=== PATIENT | female | born 1990 | race Caucasian/White ===

== ENCOUNTER 2017-02-14 14:54 | Emergency (ER) | payer SELFPAY ==
--- NOTE | 2017-02-14 15:30 | ER Document Report ---
HPI - HPI Patient complains to provider of: Right ankle swelling for 3 months and exposure to possible STD Onset: Other - See above Onset/Duration: Persistent Pain Level: 4 Context: 26-year-old female wants her right ankle checked out she has had swelling in it for 3 months. No recent injury. She previously had open reduction internal fixation of right calcaneus fracture with a implant Synthes titanium lateral calcaneal mesh plate surgery by Dr. Lynn 07-08-2015. She also was told by her ex-male partner that she may have been exposed to STD. She has white discharge that is itchy. No pelvic pain. No fever. No nausea vomiting or diarrhea. Associated Symptoms: None Exacerbated by: Walking Relieved by: Denies Similar symptoms previously: No Recently seen / treated by doctor: No Notes: Patient of the health department - ROS ROS below otherwise negative: Yes Systems Reviewed and Negative: Yes All other systems reviewed and negative - REPRODUCTIVE LMP: Dec 2016 Reproductive: DENIES: : Past Medical History - General Information source: Patient - Social History Smoking Status: Never Smoker Frequency of alcohol use: None Drug Abuse: None Lives with: Family Family History: Reviewed & Not Pertinent - Medical History Medical History: Negative Past Surgical History: Reports: Hx Section - Immunizations Immunizations up to date: Yes Hx Diphtheria, Pertussis, Tetanus Vaccination: Yes - 05/15/14 Vertical Provider Document - CONSTITUTIONAL Agree With Documented VS: Yes Exam Limitations: No Limitations - INFECTION CONTROL TRAVEL OUTSIDE OF THE [place] IN LAST 30 DAYS: No COUNTRY TRAVELED TO/FROM: [facility] - [facility] HEENT: Normocephalic - NECK Neck: Supple - RESPIRATORY Respiratory: Breath Sounds Normal, No Respiratory Distress O2 Sat by Pulse Oximetry: 99 - CARDIOVASCULAR Cardiovascular: Regular Rate, Regular Rhythm - GI/ABDOMEN Gastrointestinal: Abdomen Soft, Abdomen Non-Tender, No Organomegaly - MUSCULOSKELETAL/EXTREMETIES Musculoskeletal/Extremeties: MAEW, FROM, Edema - right perilateral malleolus - NEURO Level of Consciousness: Awake, Alert Motor/Sensory: No Motor Deficit, No Sensory Deficit - DERM Integumentary: Warm, Dry, No Rash Course - Re-evaluation Re-evalutation: 02/14/17 16:51 test is negative, the wet prep looks like she has bacterial vaginosis 4+ bacteria and 4+ epi's the gonorrhea and Chlamydia are pending. 02/14/17 17:19 X-ray shows chronic post surgical changes but nothing acute. 02/14/17 17:27 Patient does not want to be treated for gonorrhea and chlamydia she wants to wait until the cultures come back so I will give her my phone number at the desk and sitting and she can call me back in 2 hours. I will treat her for the bacterial vaginosis with Flagyl and discussed this with her especially not to drink any alcohol. - Vital Signs Vital signs: Temp Pulse Resp BP Pulse Ox 98.0 F 76 16 108/80 99 02/14/17 15:02 02/14/17 15:02 02/14/17 15:02 02/14/17 15:02 02/14/17 15:02 Discharge - Discharge Clinical Impression: Bacterial vaginosis, Chronic right ankle swelling Condition: Good Disposition: HOME, SELF-CARE Instructions: Arthralgia ([facility]), Metronidazole ([facility]), Vaginosis, Bacterial ([facility]) Additional Instructions: Call me in 2 hours for the gonorrhea and Chlamydia test. [phone] Lynn if this ankle swelling and pain persists return to er any concerns no alcohol when takinge the flagyl(metronidazole) Prescriptions: Metronidazole 500 mg PO BID #14 tablet Referrals: CHALO LYNN MD [ACTIVE STAFF] - Follow up as needed
[2017-02-14 16:21] LABS: T.VAGINALIS (WET MOUNT) NO TRICHOMONAS SEEN
[2017-02-14 16:22] LABS: BACTERIA (WET MOUNT) 4+ BACTERIA SEEN; EPITHELIALS (WET MOUNT) 4+ EPITHELIALS SEEN; WBCS (WET MOUNT) 1+ WBCS SEEN; YEAST (WET MOUNT) NO YEAST SEEN
--- NOTE | 2017-02-14 17:13 | RADIOLOGY REPORT (SQ) ---
EXAM DESCRIPTION: ANKLE RIGHT COMPLETE COMPLETED DATE/TIME: 02/14/2017 5:03 pm REASON FOR STUDY: swelling COMPARISON: 06/23/2015 NUMBER OF VIEWS: Three views. TECHNIQUE: AP, lateral, and oblique radiographic images acquired of the right ankle. LIMITATIONS: None. FINDINGS: MINERALIZATION: Normal. BONES: No acute fracture or dislocation. No worrisome bone lesions. Internal fixation hardware invo lving the calcaneus with complete healing of previous identified fracture. Bony excrescence involvin g the distal fibula compatible with chronic avulsion type injury. JOINTS: No effusions. SOFT TISSUES: No soft tissue swelling. No foreign body. OTHER: No other significant finding. IMPRESSION: CHRONIC POSTTRAUMATIC/ POSTSURGICAL CHANGE ABOVE WITHOUT ACUTE OSSEOUS ABNORMALITY OR HARDWARE COMPLICATION IDENTIFIED. TECHNICAL DOCUMENTATION: JOB ID: [id number] [employer]- All Rights Reserved
[2017-02-14 17:40] VITALS: BP 111/63
[2017-02-14 17:47] LABS: CHLAM PCR NOT DETECTED (NOT DETECT); GON PCR NOT DETECTED (NOT DETECT)
== END 2017-02-14 17:40 | disposition home or self-care (01) ==
LOC: ER 14:54
DX: N76.0 Acute vaginitis (principal); B96.89 Other specified bacterial agents as the cause of diseases classified elsewhere; M79.89 Other specified soft tissue disorders; Z98.890 Other specified postprocedural states
CPT/HCPCS: 81025; 87210; 87491; 87591; 99284

== ENCOUNTER 2018-11-05 11:32 | Emergency (ER) | payer OTHER ==
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
[2018-11-05] MEDS ORDERED: CEFTRIAXONE INJ 250 MG VIAL IM ONE (11:47)
[2018-11-05] MEDS ORDERED: LIDOCAINE 1% INJ-PF (10 MG/ML) 30 ML SDV INJ ONE (11:47)
[2018-11-05] MEDS ORDERED: AZITHROMYCIN 250 MG TABLET PO ONE (11:47)
[2018-11-05 12:16] LABS: APPEARANCE,URINE SLIGHTLY-CLOUDY; BILIRUBIN,URINE NEGATIVE (NEGATIVE); COLOR,URINE AMBER; GLUCOSE, URINE NEGATIVE (NEGATIVE); KETONES,URINE TRACE mg/dL (NEGATIVE); LEUKOCYTE ESTERASE,URINE NEGATIVE (NEGATIVE); NITRITE,URINE NEGATIVE (NEGATIVE); PROTEIN,URINE 30 mg/dL (NEGATIVE); URINE SPECIFIC GRAVITY 1.025
[2018-11-05 12:24] LABS: BACTERIA (WET MOUNT) 3+ BACTERIA SEEN; EPITHELIALS (WET MOUNT) 3+ EPITHELIALS SEEN; RBCS (WET MOUNT) RARE RBCS SEEN; T.VAGINALIS (WET MOUNT) NO TRICHOMONAS SEEN; WBCS (WET MOUNT) RARE WBCS SEEN; YEAST (WET MOUNT) YEAST SEEN
--- NOTE | 2018-11-05 13:17 | RADIOLOGY REPORT (SQ) ---
EXAM DESCRIPTION: CT FACIAL AREA WITHOUT COMPLETED DATE/TIME: 11/05/2018 1:01 pm REASON FOR STUDY: Rt orbit/nasal bone pain s/p injury COMPARISON: None. TECHNIQUE: Noncontrasted images through the facial bones and orbits windowed for bone and soft tissu e. Additional coronal and sagittal reconstructed images reviewed. All images stored on PACS. All CT scanners at this facility use dose modulation, iterative reconstruction, and/or weight based d osing when appropriate to reduce radiation dose to as low as reasonably achievable (ALARA). [facility]: Dose Right [facility]: CareDose [facility]: Dose Right [facility]: Teradose 4D [facility]: Smart Technologies RADIATION DOSE: CT Rad equipment meets quality standard of care and radiation dose reduction techniq ues were employed. CTDIvol: 30.4 mGy. DLP: 673 mGy-cm. mGy. LIMITATIONS: None. FINDINGS: FACIAL BONES: There is minimal fracture of the right nasal plate. ORBITS: Intact. No fracture. Symmetric intact globes and retroorbital soft tissues. PARANASAL SINUSES: Clear. No significant mucosal thickening, mass or fluid. No nasal polyps. Maxill dioni sinus outlets are patent. SOFT TISSUES: No mass or edema. INFERIOR BRAIN: Limited view. No acute findings. OTHER: No other significant finding. IMPRESSION: Minimal fracture of the lateral nasal plate on the right. TECHNICAL DOCUMENTATION: JOB ID: [id number] Quality ID # [id number]: Final reports with documentation of one or more dose reduction techniques (e.g., Au tomated exposure control, adjustment of the mA and/or kV according to patient size, use of iterative reconstruction technique) 2010 [employer]- All Rights Reserved Reading location - IP/workstation name: [email or web address]
[2018-11-05 13:53] LABS: CHLAM PCR NOT DETECTED (NOT DETECT)
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
[2018-11-05 15:37] VITALS: BP 120/76
== END 2018-11-05 15:36 | disposition home or self-care (01) ==
LOC: ER 11:32
DX: S02.2XXA Fracture of nasal bones, initial encounter for closed fracture (principal); N89.8 Other specified noninflammatory disorders of vagina; W55.32XA Struck by other hoof stock, initial encounter
CPT/HCPCS: 99283; 96374; 96375; 87210; 81025; 81001; 87491; 87591; 70486; J3490; J0696

== ENCOUNTER → 2019-03-21 | Outpatient (CLI) | payer MEDICAID | LOC: OD 10:08 | PROVIDERS: ATTEND Obstetrics & Gynecology Gynecology | DX: O20.0 Threatened abortion (principal) | CPT/HCPCS: 36415; 84702 ==

== ENCOUNTER 2019-03-22 12:44 | Emergency (ER) | payer OTHER, MEDICAID ==
--- NOTE | 2019-03-22 13:28 | ER Document Report ---
ED Medical Screen (RME) - General Chief Complaint: Vaginal Bleeding Stated Complaint: VAGINAL BLEEDING Time Seen by Provider: 03/22/19 13:24 Primary Care Provider: OUSMANE ISLAS MD [Primary Care Provider] - Follow up as needed TRAVEL OUTSIDE OF THE U.S. IN LAST 30 DAYS: No - HPI Notes: 03/22/19 13:27 Patient is a 28-year-old female G3, P2 approximately 6 weeks who pre sents complaining of increased lower pelvic pain and vaginal bleeding. Patient was seen yesterday by her DIVERSITY INTERN and had an hCG count of 268 concerning for miscarriage. Patient was told that she needs a lab repeat next week, but came here because of increased pain to her pelvic area. Patient states that she did receive the RhoGam shot on Monday as she is Rh factor negative. No vomiting or diarrhea. No trouble urinating. No fever. I have treated and performed a rapid initial assessment of this patient. A comprehensive ED assessment and evaluation of the patient, analysis of test results and completion of medical decision making process will be conducted by additional ED providers. PHYSICAL EXAMINATION: GENERAL: Well-appearing, well-nourished and in no acute distress. A&Ox4. Answe rs questions appropriately. - Related Data Allergies/Adverse Reactions: No Known Allergies Allergy (Verified 03/22/19 13:18) Past Medical History - Social History Family history: None - according to patient - Past Medical History Cardiac Medical History: Denies: Hx Coronary Artery Disease, Hx Heart Attack, Hx Hypertension Pulmonary Medical History: Denies: Hx Asthma, Hx Bronchitis, Hx COPD, Hx Pneumonia Neurological Medical History: Denies: Hx Cerebrovascular Accident, Hx Seizures Renal/ Medical History: Denies: Hx Peritoneal Dialysis Musculoskeltal Medical History: Denies Hx Arthritis Past Surgical History: Reports: Hx Section - Immunizations Immunizations up to date: Yes Hx Diphtheria, Pertussis, Tetanus Vaccination: Yes - 05/15/14 Physical Exam - Vital signs Vitals: Temp Pulse Resp BP Pulse Ox 98.2 F 82 18 121/77 99 03/22/19 12:54 03/22/19 12:54 03/22/19 12:54 03/22/19 12:54 03/22/19 12:54 Course - Vital Signs Vital signs: Temp Pulse Resp BP Pulse Ox 98.2 F 82 18 121/77 99 03/22/19 12:54 03/22/19 12:54 03/22/19 12:54 03/22/19 12:54 03/22/19 12:54 Doctor's Discharge - Discharge Referrals: OUSMANE ISLAS MD [Primary Care Provider] - Follow up as needed
[2019-03-22 14:27] LABS: ABSOLUTE EOSINOPHILS # (AUTO) 0.1 10^3/uL (0.0-0.6); ABSOLUTE LYMPHOCYTES (AUTO) 2.3 10^3/uL (0.5-4.7); ABSOLUTE MONOCYTES (AUTO) 0.5 10^3/uL (0.1-1.4); ABSOLUTE NEUT (AUTO) 4.1 10^3/uL (1.7-8.2); BASOPHILS % (AUTO) 0.3 % (0-2); EOSINOPHILS % (AUTO) 1.8 % (0-6); HEMATOCRIT 38.8 % (36.0-47.0); HEMOGLOBIN 13.4 g/dL (12.0-15.5); LYMPHOCYTES % (AUTO) 32.4 % (13-45); MEAN CORPUSCULAR HEMOGLOBIN 30.1 pg (27.0-33.4); MEAN CORPUSCULAR HGB CONC 34.5 g/dL (32.0-36.0); MEAN CORPUSCULAR VOLUME 87 fl (80-97); PLATELET COUNT 277 10^3/uL (150-450); RED BLOOD COUNT 4.45 10^6/uL (3.72-5.28); RED CELL DISTRIBUTION WIDTH 14.1 % (11.5-14.0); SEGMENTED NEUTROPHILS % (AUTO) 58.5 % (42-78); TOTAL CELLS COUNTED % (AUTO) 100 %
[2019-03-22 14:41] LABS: APPEARANCE,URINE SLIGHTLY-CLOUDY; BILIRUBIN,URINE NEGATIVE (NEGATIVE); COLOR,URINE YELLOW; GLUCOSE, URINE NEGATIVE (NEGATIVE); KETONES,URINE NEGATIVE (NEGATIVE); PROTEIN,URINE 30 mg/dL (NEGATIVE); URINE SPECIFIC GRAVITY 1.016; UROBILINOGEN,URINE NEGATIVE mg/dL (<2.0)
[2019-03-22 14:47] LABS: ALBUMIN 3.9 g/dL (3.5-5.0); ALKALINE PHOSPHATASE 102 U/L (38-126); ANION GAP 6 (5-19); ASPARTATE AMINO TRANSFERASE 24 U/L (14-36); BILIRUBIN,TOTAL 0.3 mg/dL (0.2-1.3); BLOOD UREA NITROGEN 16 mg/dL (7-20); CALCIUM 8.9 mg/dL (8.4-10.2); CARBON DIOXIDE 29 mmol/L (22-30); CHLORIDE 103 mmol/L (98-107); POTASSIUM 4.5 mmol/L (3.6-5.0); TOTAL PROTEIN 6.7 g/dL (6.3-8.2)
[2019-03-22 15:05] LABS: GLUCOSE 67 mg/dL (75-110)
[2019-03-22] MEDS ORDERED: DEXTROSE 40% GEL 15 GM TUBE PO ONE (15:37)
--- NOTE | 2019-03-22 15:44 | ER Document Report ---
ED General - General Chief Complaint: Vag Bleeding, +preg <12wks Stated Complaint: VAGINAL BLEEDING Time Seen by Provider: 03/22/19 13:24 Primary Care Provider: OUSMANE ISLAS MD [ACTIVE STAFF] - Follow up as needed Notes: Patient is a 28-year-old white female who is G3, P2 at approximately 6 weeks gestation who presents to the emergency department with a chief complaint of vaginal spotting for the past week. She states that she was seen by her OB doctor yesterday, had a blood hCG level that was around 238 but no other testing. States that she was told to follow-up in a week. She states that she is having persistent bleeding and some associated sharp right pelvic pain with activities or lifting so she came for further evaluation. She denies any worsening of bleeding. Denies passage of clots or tissue. Denies any abdominal or pelvic pain at rest. Denies any vaginal discharge or urinary complaints. S he denies any fever, nausea, vomiting, diarrhea. TRAVEL OUTSIDE OF THE [place] IN LAST 30 DAYS: No - Related Data Allergies/Adverse Reactions: No Known Allergies Allergy (Verified 03/22/19 13:18) Past Medical History - Social History Smoking Status: Never Smoker Family History: Reviewed & Not Pertinent Patient has suicidal ideation: No Patient has homicidal ideation: No - Past Medical History Cardiac Medical History: Denies: Hx Coronary Artery Disease, Hx Heart Attack, Hx Hypertension Pulmonary Medical History: Denies: Hx Asthma, Hx Bronchitis, Hx COPD, Hx Pneumonia Neurological Medical History: Denies: Hx Cerebrovascular Accident, Hx Seizures Renal/ Medical History: Denies: Hx Peritoneal Dialysis Musculoskeletal Medical History: Denies Hx Arthritis Past Surgical History: Reports: Hx Section - Immunizations Immunizations up to date: Yes Hx Diphtheria, Pertussis, Tetanus Vaccination: Yes - 05/15/14 Review of Systems - Review of Systems Female Genitourinary: , Vaginal bleeding -: Yes All other systems reviewed and negative Physical Exam - Vital signs Vitals: Temp Pulse Resp BP Pulse Ox 98.2 F 82 18 121/77 99 03/22/19 12:54 03/22/19 12:54 03/22/19 12:54 03/22/19 12:54 03/22/19 12:54 - General General appearance: Appears well, Alert In distress: None - Respiratory Respiratory status: No respiratory distress Chest status: Nontender Breath sounds: Normal Chest palpation: Normal - Cardiovascular Rhythm: Regular Heart sounds: Normal auscultation - Abdominal Inspection: Normal Distension: No distension Bowel sounds: Normal Tenderness: Nontender Organomegaly: No organomegaly - Back Back: No: CVA tenderness - Neurological Neuro grossly intact: Yes Cognition: Normal Orientation: AAOx4 Vishnu Coma Scale Eye Opening: Spontaneous Vishnu Coma Scale Verbal: Oriented [place] Coma Scale Motor: Obeys Commands [place] Coma Scale Total: 15 Speech: Normal - Psychological Associated symptoms: Normal affect, Normal mood - Skin Skin Temperature: Warm Skin Moisture: Dry Skin Color: Normal Course - Re-evaluation Re-evalutation: 03/22/19 17:50 Reevaluation of the patient at this time, she is resting comfortably in the room. Her repeat hCG testing today from yesterday has declined by 10 points from 2 68-2 58. Her ultrasound showing what is possibly an early IUP versus threatened miscarriage. Discussed this with the patient. She will observe generalized rest, pelvic rest and follow-up in 48 hours for repeat hCG testing as well as repeat ultrasound. Discussed with her the importance of outpatient follow-up with her DATA CENTER ARCHITECT and advised that she return here or any ER immediately with any new, persistent or worsening symptoms. She verbalized understood and agreed. - Vital Signs Vital signs: Temp Pulse Resp BP Pulse Ox 98.2 F 82 18 121/77 99 03/22/19 12:54 03/22/19 12:54 03/22/19 12:54 03/22/19 12:54 03/22/19 12:54 - Laboratory Result Diagrams: 03/22/19 13:50 03/22/19 13:50 Laboratory results interpreted by me: 03/22/19 03/22/19 03/22/19 13:50 13:50 13:50 RDW 14.1 H Glucose 67 L Beta HCG, Quant 258.60 H Urine Protein 30 H Urine Blood LARGE H Leukocyte Esterase Rfl TRACE H Urine Ascorbic Acid 40 H Discharge - Discharge Clinical Impression: Threatened Condition: Stable Disposition: HOME, SELF-CARE Instructions: Threatened Miscarriage ([facility]) Additional Instructions: Follow-up with your DATA CENTER ARCHITECT in 48 hours or here for repeat blood testing and ultrasound. Return here or any ER immediately with any new, persistent or worsening symptoms. Referrals: OUSMANE ISLAS MD [ACTIVE STAFF] - Follow up as needed
--- NOTE | 2019-03-22 17:35 | RADIOLOGY REPORT (SQ) ---
EXAM DESCRIPTION: U/S OB TRANSVAG W/DOPPLER COMPLETED DATE/TIME: 03/22/2019 5:04 pm REASON FOR STUDY: pelvic pain, bleeding, approx 6wks preg, low hcg COMPARISON: None. TECHNIQUE: Transvaginal static and realtime grayscale images acquired of the pelvis. Additional miya cted spectral and color Doppler images recorded. All images stored on PACs. CLINICAL AGE: 6 weeks bHC LIMITATIONS: None. FINDINGS: UTERUS: No masses. No anomalies. GESTATIONAL SAC: 4 mm YOLK SAC: No. POLE: None present. RIGHT ADNEXA: Normal ovary with normal vascular flow. No adnexal free fluid. No adnexal masses. LEFT ADNEXA: Normal ovary with normal vascular flow. No adnexal free fluid. No adnexal masses. FREE FLUID: None. OTHER: No other significant finding. IMPRESSION: POSSIBLE EARLY INTRAUTERINE . CONSIDER F/U BHCG AND/OR ULTRASOUND FOR VERIFICATION AND TO EXCLUDE ECTOPIC . Trimester of : First trimester - 0 to 13 weeks. TECHNICAL DOCUMENTATION: JOB ID: [id number] [id number] 2010 [employer]- All Rights Reserved Reading location - IP/workstation name: [email or web address]
[2019-03-22 18:25] VITALS: BP 107/83
== END 2019-03-22 18:25 | disposition home or self-care (01) ==
LOC: ER 12:44
DX: O20.0 Threatened abortion (principal); Z3A.01 Less than 8 weeks gestation of pregnancy
CPT/HCPCS: 36415; 76817; 80053; 81001; 84702; 85025; 93976; 99284

== ENCOUNTER 2019-10-02 07:10 | Emergency (ER) | payer MEDICAID, OTHER ==
--- NOTE | 2019-10-02 07:54 | ER Document Report ---
ED ENT - General Chief Complaint: Sore Throat Stated Complaint: COUGH,SORE THROAT,HEADACHE Time Seen by Provider: 10/02/19 07:53 TRAVEL OUTSIDE OF THE [place] IN LAST 30 DAYS: No - HPI Notes: 20-year-old female presents with sore throat. Patient states she developed a sore throat on Monday. She states that she looked in the back of her throat and saw white patches, states that it felt like strep and self diagnosed herself with strep throat. She started amoxicillin which she had leftover from previous strep infection. She additionally has congestion and a sinus headache. Tolerating p.o., no vomiting or diarrhea. No fever. She has taken DayQuil for her symptoms. Patient additionally is requesting test, she reports her last menstrual period was September 03, she took a home test and it was positive and she would like to confirm this. She denies vaginal bleeding, vaginal discharge or pain. - Related Data Allergies/Adverse Reactions: No Known Allergies Allergy (Verified 10/02/19 07:25) Home Medications: adderall. antidepressant Past Medical History - General Information source: Patient - Social History Smoking Status: Never Smoker Chew tobacco use (# tins/day): No Frequency of alcohol use: None Drug Abuse: None Family History: Reviewed & Not Pertinent Patient has homicidal ideation: No - Past Medical History Cardiac Medical History: Denies: Hx Coronary Artery Disease, Hx Heart Attack, Hx Hypertension Pulmonary Medical History: Denies: Hx Asthma, Hx Bronchitis, Hx COPD, Hx Pneumonia Neurological Medical History: Denies: Hx Cerebrovascular Accident, Hx Seizures Renal/ Medical History: Denies: Hx Peritoneal Dialysis Musculoskeletal Medical History: Denies Hx Arthritis Psychiatric Medical History: Reports: Hx Attention Deficit Hyperactivity Disorder, Hx Depression Past Surgical History: Reports: Hx Section, Hx Orthopedic Surgery - Immunizations Immunizations up to date: Yes Hx Diphtheria, Pertussis, Tetanus Vaccination: Yes - 05/15/14 Review of Systems - Review of Systems Constitutional: denies: Fever EENT: Nose congestion, Throat pain. denies: Ear pain, Difficulty swallowing Cardiovascular: denies: Chest pain Respiratory: denies: Short of breath Gastrointestinal: denies: Diarrhea, Nausea, Vomiting Genitourinary: denies: Dysuria Female Genitourinary: denies: Vaginal discharge, Vaginal bleeding Musculoskeletal: No symptoms reported Skin: No symptoms reported Hematologic/Lymphatic: No symptoms reported Neurological/Psychological: Headaches Physical Exam - Vital signs Vitals: Temp Pulse Resp BP Pulse Ox 98.8 F 78 16 121/77 98 10/02/19 07:23 10/02/19 07:23 10/02/19 07:23 10/02/19 07:23 10/02/19 07:23 - General General appearance: Appears well In distress: None - HEENT Head: Normocephalic, Atraumatic Eyes: Normal Extraocular movements intact: Yes Pupils: PERRL Nasal: Other - Swollen and erythematous nasal turbinates Mucous membranes: Moist Pharynx: Post nasal drainage. No: Erythema, Exudate Neck: No: Lymphadenopathy - Respiratory Breath sounds: Normal - Cardiovascular Rhythm: Regular Heart sounds: Normal auscultation - Abdominal Inspection: Obese Tenderness: Nontender - Back Back: Nontender - Extremities General upper extremity: Normal inspection General lower extremity: Normal inspection - Neurological Neuro grossly intact: Yes Cognition: Normal Orientation: AAOx4 - Psychological Associated symptoms: Normal affect - Skin Skin Temperature: Warm Course - Re-evaluation Re-evalutation: 28-year-old female with sore throat and nasal congestion, she self diagnosed herself with strep and has taken amoxicillin at home. On exam her throat does not have any overt erythema or exudate, there is some evidence of postnasal drip. Additionally she does have some swollen nasal turbinates. I suspect this is congestion, possible allergic component as well. I advise allergy medication and Flonase. Will obtain strep swab. Viral pharyngitis possible as well. Additionally requesting test, voices no other symptoms, have ordered. Patient declined COVID swab. 10/02/19 09:16 Strep swab is negative. test is negative. Rediscussed with patient using allergy medication, Flonase and ibuprofen. Return precautions given, stable at time of discharge. - Vital Signs Vital signs: Temp Pulse Resp BP Pulse Ox 98.8 F 78 16 121/77 98 10/02/19 07:23 10/02/19 07:23 10/02/19 07:23 10/02/19 07:23 10/02/19 07:23 - Laboratory Laboratory results interpreted by me: 10/02/19 08:37 Urine Ascorbic Acid 40 H Discharge - Discharge Clinical Impression: Nasal congestion Pharyngitis Qualifiers: Pharyngitis/tonsillitis etiology: unspecified etiology Qualified Code(s): J02.9 - Acute pharyngitis, unspecified Condition: Stable Disposition: HOME, SELF-CARE Additional Instructions: Please begin daily use of allergy medication and steroid nasal spray. Both are available [id number]. He may continue to take ibuprofen as well. Please follow-up with your primary doctor. Return to the ED for any concerning worsening symptoms. Forms: Return to Work
[2019-10-02 09:07] LABS: APPEARANCE,URINE CLEAR; BILIRUBIN,URINE NEGATIVE (NEGATIVE); COLOR,URINE YELLOW; GLUCOSE, URINE NEGATIVE (NEGATIVE); KETONES,URINE NEGATIVE (NEGATIVE); LEUKOCYTE ESTERASE,URINE NEGATIVE (NEGATIVE); NITRITE,URINE NEGATIVE (NEGATIVE); PROTEIN,URINE NEGATIVE (NEGATIVE); URINE SPECIFIC GRAVITY 1.019; UROBILINOGEN,URINE NEGATIVE mg/dL (<2.0)
[2019-10-02 09:26] VITALS: BP 124/85
== END 2019-10-02 09:26 | disposition home or self-care (01) ==
LOC: ER 07:10
DX: J02.9 Acute pharyngitis, unspecified (principal); R09.81 Nasal congestion; R51 Headache; R09.82 Postnasal drip; F90.9 Attention-deficit hyperactivity disorder, unspecified type; F32.9 Major depressive disorder, single episode, unspecified; Z79.899 Other long term (current) drug therapy
CPT/HCPCS: 81001; 81025; 87070; 87880; 99283